=== PATIENT | female | born 1985 | race Caucasian/White ===

== ENCOUNTER 2018-05-21 12:16 | Outpatient (CLI) | payer BC | END 2018-05-21 12:17 | disposition home or self-care (01) | LOC: BICRAD 12:16 | PROVIDERS: ATTEND Urology | DX: Z09 Encounter for follow-up examination after completed treatment for conditions other than malignant neoplasm (principal); M61.9 Calcification and ossification of muscle, unspecified; Z87.442 Personal history of urinary calculi | CPT/HCPCS: 74018 ==

== ENCOUNTER 2024-08-25 08:14 | Outpatient (CLI) | payer BC | END 2024-08-25 08:15 | disposition home or self-care (01) | LOC: BICMAMMO 08:14 | PROVIDERS: ATTEND Advanced Practice Midwife | DX: N64.52 Nipple discharge (principal) | CPT/HCPCS: 76642; 77066; G0279 ==

== ENCOUNTER 2024-09-04 12:55 | Outpatient (CLI) | payer BC | END 2024-09-04 12:56 | disposition home or self-care (01) | LOC: ULT 12:55 | PROVIDERS: ATTEND Advanced Practice Midwife | DX: E04.9 Nontoxic goiter, unspecified (principal) | CPT/HCPCS: 76536 ==

== ENCOUNTER 2025-04-16 10:54 | Day surgery (SDC) | payer BC ==
[~2025-04-16 10:54] MED LIST: SECUKINUMAB IV SCH; SODIUM CHLORIDE 0.9% IV SCH
[2025-04-16 11:51] VITALS: BP 117/79; TEMP 98.2
[2025-04-16] MEDS: SODIUM CHLORIDE 0.9% IV SCH (11:55)
[2025-04-16] MEDS: SECUKINUMAB IV SCH (11:55)
== END 2025-04-16 12:50 | disposition home or self-care (01) ==
LOC: ONC/OP 10:54
PROVIDERS: ATTEND Internal Medicine Rheumatology
DX: L40.59 Other psoriatic arthropathy (principal)
CPT/HCPCS: 96413; J3247

== ENCOUNTER → 2025-05-14 | Day surgery (SDC) | payer BC ==
[2025-05-14] MEDS: SECUKINUMAB IV SCH (13:51)
[2025-05-14] MEDS: SODIUM CHLORIDE 0.9% IV SCH (13:51)
[2025-05-14 14:50] VITALS: BP 128/80; TEMP 98.3
== END ==
LOC: ONC/OP 13:00
PROVIDERS: ATTEND Internal Medicine Rheumatology
DX: L40.59 Other psoriatic arthropathy (principal)
CPT/HCPCS: J3247

== ENCOUNTER 2025-06-11 12:45 | Day surgery (SDC) | payer BC ==
[2025-06-11] MEDS: SECUKINUMAB IV SCH (13:58)
[2025-06-11] MEDS: SODIUM CHLORIDE 0.9% IV SCH (13:58)
[2025-06-11 14:08] VITALS: BP 120/72; TEMP 98.5
== END 2025-06-11 15:00 | disposition home or self-care (01) ==
LOC: ONC/OP 12:45
PROVIDERS: ATTEND Internal Medicine Rheumatology
DX: L40.59 Other psoriatic arthropathy (principal)
CPT/HCPCS: 96413; J3247

== ENCOUNTER 2025-07-09 13:02 | Day surgery (SDC) | payer BC ==
[2025-07-09] MEDS: SODIUM CHLORIDE 0.9% IV SCH (14:06)
[2025-07-09] MEDS: SECUKINUMAB IV SCH (14:06)
[2025-07-09 14:31] VITALS: BP 124/88; TEMP 98.7
== END 2025-07-09 15:00 | disposition home or self-care (01) ==
LOC: ONC/OP 13:02
PROVIDERS: ATTEND Internal Medicine Rheumatology
DX: L40.59 Other psoriatic arthropathy (principal)
CPT/HCPCS: 96413; J3247

== ENCOUNTER 2025-08-05 13:02 | Day surgery (SDC) | payer BC ==
[2025-08-05] MEDS: SODIUM CHLORIDE 0.9% IV SCH (14:02)
[2025-08-05] MEDS: SECUKINUMAB IV SCH (14:02)
[2025-08-05 14:48] VITALS: BP 127/81; TEMP 98.3
== END 2025-08-05 15:10 | disposition home or self-care (01) ==
LOC: ONC/OP 13:02
PROVIDERS: ATTEND Internal Medicine Rheumatology
DX: L40.59 Other psoriatic arthropathy (principal)
CPT/HCPCS: 96413; J3247

== ENCOUNTER 2025-09-01 12:41 | Day surgery (SDC) | payer BC ==
[2025-09-01] MEDS: SODIUM CHLORIDE 0.9% IV SCH (13:37)
[2025-09-01] MEDS: SECUKINUMAB IV SCH (13:37)
[2025-09-01 13:46] VITALS: BP 128/84; TEMP 98.2
== END 2025-09-01 14:44 | disposition home or self-care (01) ==
LOC: ONC/OP 12:41
PROVIDERS: ATTEND Internal Medicine Rheumatology
DX: L40.59 Other psoriatic arthropathy (principal)
CPT/HCPCS: 96413; J3247